=== PATIENT | female | born 1960 | race American Indian/Alaskan Native ===

== ENCOUNTER 2017-08-09 06:04 | Observation (INO) | payer OTHER ==
[2017-08-09 06:13] VITALS: BMI 31.1
--- NOTE | 2017-08-09 07:10 | ED PDOC ---
Lower Extremity Pain/Injury Time Seen by Provider: 08/09/17 07:00 Chief Complaint (Nursing): Lower Extremity Problem/Injury History Per: Patient (Right ankle pain. No recent trauma. Worse on ambualtion) Past Medical History Vital Signs: Last Vital Signs Temp 98.3 F 08/09/17 06:16 Pulse 82 08/09/17 06:26 Resp 16 08/09/17 06:16 BP 178/106 H 08/09/17 06:16 Pulse Ox 99 08/09/17 06:16 - Medical History PMH: Anemia, HTN, Hypothyroidism - Family History Family History: States: Unknown Family Hx - Immunization History Hx Tetanus Toxoid Vaccination: No Hx Influenza Vaccination: No Hx Pneumococcal Vaccination: No - Home Medications Home Medications: Ambulatory Orders Medication Instructions Recorded Atenolol/Chlorthalidone 1 tab PO DAILY 11/26/12 [Atenolol/Chlorthalidone 50 mg-25 mg] Levothyroxine [Synthroid] 1 tab PO DAILY 11/26/12 Acetaminophen with Codeine 1 each PO Q6 PRN #12 tablet 07/25/17 [Tylenol with Codeine #3 Tablet] Valsartan/Hydrochlorothiazide 1 tab PO DAILY 07/25/17 [Valsartan and Hydrochlorothiazide 12.5 mg-160] - Allergies Allergies/Adverse Reactions: Allergies Allergy/AdvReac Type Severity Reaction Status Date / Time strawberry Allergy RASH Verified 07/25/17 09:52 Review of Systems Cardiovascular: Negative for: Chest Pain Respiratory: Negative for: Shortness of Breath Musculoskeletal: Positive for: Other (Ankle pain) Neurological: Negative for: Weakness, Numbness Physical Exam - Physical Exam Appears: Positive for: Non-toxic, No Acute Distress Skin: Positive for: Normal Color, Warm, DRY Cardiovascular/Chest: Positive for: Regular Rate, Rhythm Respiratory: Positive for: CNT, Normal Breath Sounds Extremity: Positive for: Other (Swellingt and tenderness right ankle medial and lateral) Neurologic/Psych: Positive for: Alert, Oriented - ECG O2 Sat by Pulse Oximetry: 99 Disposition - Clinical Impression Clinical Impression: Fracture of distal fibula - Patient ED Disposition Is Patient to be Admitted: Yes - Disposition Disposition Time: 07:11 Condition: FAIR Forms: [facility] (Slovak) - Pt Status Changed To: Hospital Disposition Of: Observation - POA Present On Arrival: None
[2017-08-09] MEDS ORDERED: Sodium Chloride 0.9% 1,000 ML IV STA (07:26)
[2017-08-09 08:03] LABS: BASO % 0.5 % (0.0-2.0); EOS # 0.2 K/uL (0.0-0.7); EOS % 3.1 % (0.0-4.0); HEMOGLOBIN 12.2 g/dL (12.0-16.0); LYMPH # 1.5 K/uL (1.0-4.3); LYMPH % 30.8 % (20.0-40.0); MEAN CORPUSCULAR HEMOGLOBIN 29.4 pg (27.0-31.0); MEAN CORPUSCULAR HGB CONC 33.1 g/dL (33.0-37.0); MEAN PLATELET VOLUME 7.8 fl (7.2-11.7); MONO # 0.5 K/uL (0.0-0.8); MONO % 11.3 % (0.0-10.0); NEUT # 2.6 K/uL (1.8-7.0); NEUT % 54.3 % (50.0-75.0); NRBC % 0.1 % (0.0-0.0); RBC 4.14 Mil/uL (3.80-5.20); RED CELL DISTRIBUTION WIDTH 13.4 % (11.5-14.5); WHITE BLOOD COUNT 4.8 K/uL (4.8-10.8)
[2017-08-09 08:21] LABS: ALB/GLOB RATIO 0.9 (1.0-2.1); ALBUMIN 4.1 g/dL (3.5-5.0); ALT/SGPT 24 U/L (9-52); AST/SGOT 41 U/L (14-36); BLOOD UREA NITROGEN 12 mg/dl (7-17); CALCIUM 9.1 mg/dL (8.4-10.2); GFR AFRICAN-AMERICAN > 60; GFR NON-AFRICAN AMERICAN > 60
[2017-08-09 08:31] LABS: INR 1.1 (0.9-1.2); PROTHROMBIN TIME 12.7 Seconds (9.8-13.1)
--- NOTE | 2017-08-09 08:38 | CARD ---
APPROVED REPORT EKG Measurement Heart [id number] MA [id number] <Conclusion> Normal sinus rhythm Nonspecific T wave abnormality Abnormal ECG
--- NOTE | 2017-08-09 09:00 | CP.PCM.CON ---
History of Present Illness - History of Present Illness History of Present Illness: 57 yo female with pmhx of HTN, hypothyroidism and anemia presents to ED for persistent right lower leg pain. Pt has right distal fibular fx s/p slipped on puddle of water and twisted her right ankle on 07/25/17. Pt was advised to f/u with orthopedist surgeon. Today, medicine was consulted for preop medical evaluation prior to surgery. Patient denies any chest pain, dyspnea, headache, dizziness, nausea, vomiting or abdominal pain. Denies any hx CAD or asthma. Denies smoking cigarettes or using recreational drugs. Denies hx aspirin or plavix use. Last use of ibuprofen was 2 days ago. Pt was seen by her PMD Dr. Fortune about a week ago, had an EKG, UA, cbc, cmp, thyroid panel and lipid panel ( reports received and reviewed today). PMD: Dr. Fortune pmhx: HTN, Hypothyroidism, hx anemia, congenital right eye deformity medications: Diovan HCTZ (160 mg/12.5 mg), levothyroxine 75 mcg pshx: right ovarian cystectomy in allergies: NKDA Family hx: non-contributory ROS: all 12 systems reviewed and are negative except as mentioned in HPI Review of Systems - Constitutional Constitutional: absent: Chills, Fever - Cardiovascular Cardiovascular: absent: Chest Pain, Chest Pain at Rest, Chest Pain with Activity , Dyspnea - Respiratory Respiratory: absent: Cough, Dyspnea - Gastrointestinal Gastrointestinal: absent: Abdominal Pain, Nausea, Vomiting - Genitourinary Genitourinary: absent: Dysuria, Urinary Frequency - Integumentary Integumentary: absent: Unusual Bruising - Neurological Neurological: absent: Dizziness, Headaches - Hematologic/Lymphatic Hematologic: absent: Easy Bleeding, Easy Bruising Past Patient History - Infectious Disease Hx of Infectious Diseases: None - Past Medical History & Family History Past Medical History?: Yes - Past Social History Smoking Status: Current Some Days Smoker - CARDIAC Hx Hypertension: Yes - ENDOCRINE/METABOLIC Hx Hypothyroidism: Yes - HEMATOLOGICAL/ONCOLOGICAL Hx Anemia: Yes - PSYCHIATRIC Hx Emotional Abuse: No Hx Physical Abuse: No Hx Substance Use: No - SURGICAL HISTORY Hx Surgeries: No - ANESTHESIA Hx Anesthesia: No Meds Allergies/Adverse Reactions: Allergies Allergy/AdvReac Type Severity Reaction Status Date / Time strawberry Allergy RASH Verified 07/25/17 09:52 - Medications Medications: Current Medications Sodium Chloride (Sodium Chloride 0.9%) 1,000 mls @ 100 mls/hr IV .Q10H STA Stop: 08/09/17 17:25 Last Admin: 08/09/17 08:01 Dose: 100 mls/hr Physical Exam - Constitutional Appears: Well, No Acute Distress - Head Exam Head Exam: ATRAUMATIC, NORMOCEPHALIC - Eye Exam Additional comments: Congenital right eye defects (right eye blindness) - ENT Exam ENT Exam: Mucous Membranes Moist, Normal Oropharynx - Neck Exam Neck exam: Positive for: Normal Inspection. Negative for: Thyromegaly - Respiratory Exam Respiratory Exam: Clear to Auscultation Bilateral, NORMAL BREATHING PATTERN. absent: Rhonchi, Wheezes - Cardiovascular Exam Cardiovascular Exam: REGULAR RHYTHM, RRR, +S1, +S2 - GI/Abdominal Exam GI & Abdominal Exam: Normal Bowel Sounds, Soft. absent: Tenderness - Extremities Exam Extremities exam: Positive for: pedal pulses present. Negative for: calf tenderness Additional comments: Mild edema of right lower leg. Has orthoshoe on right lower leg. Neurovascular intact - Back Exam Back exam: NORMAL INSPECTION - Neurological Exam Neurological exam: Alert, Oriented x3 - Psychiatric Exam Psychiatric exam: Normal Affect, Normal Mood Results - Vital Signs Recent Vital Signs: Last Vital Signs Temp 98.3 F 08/09/17 06:16 Pulse 82 08/09/17 06:26 Resp 16 08/09/17 06:16 BP 178/106 H 08/09/17 06:16 Pulse Ox 99 08/09/17 07:11 - Labs Result Diagrams: 08/09/17 07:50 08/09/17 07:50 Labs: Laboratory Results - last 24 hr 08/09/17 08/09/17 08/09/17 07:50 07:50 07:50 WBC 4.8 RBC 4.14 Hgb 12.2 Hct 36.8 MCV 89.0 MCH 29.4 MCHC 33.1 RDW 13.4 Plt Count 295 MPV 7.8 Neut % (Auto) 54.3 Lymph % (Auto) 30.8 Grundy % (Auto) 11.3 H Eos % (Auto) 3.1 Baso % (Auto) 0.5 Neut # (Auto) 2.6 Lymph # (Auto) 1.5 Grundy # (Auto) 0.5 Eos # (Auto) 0.2 Baso # (Auto) 0.0 PT 12.7 INR 1.1 Sodium 144 Potassium 3.7 Chloride 105 Carbon Dioxide 30 Anion Gap 13 BUN 12 Creatinine 0.7 Est GFR ( Amer) > 60 Est GFR (Non-Af Amer) > 60 Random Glucose 110 H Calcium 9.1 Total Bilirubin 0.7 AST 41 H ALT 24 Alkaline Phosphatase 129 H Total Protein 8.5 H Albumin 4.1 Globulin 4.4 H Albumin/Globulin Ratio 0.9 L Assessment & Plan - Assessment and Plan (Free Text) Assessment: Assessment: 57 year old female with pmhx of HTN, hypothyroidism and anemia consulted for preop evaluation for right ankle surgery today. Plan: 1. Right distal fibular fracture -Pain management -Manage as per orthopedist 2. Hypertension -Continue with home medication, Diovan HCTZ 160mg/12.5 mg po qd 3. Hypothyroidism -TSH 1.78 on 07/16/17 -continue with levothyroxine 75 mcg
--- NOTE | 2017-08-09 09:25 | RAD ---
PROCEDURE: Right Ankle Radiographs. HISTORY: trauma COMPARISON: None FINDINGS: BONES: Oblique nondisplaced fracture distal fibula. No tibial fracture appreciated. JOINTS: Normal. No osteoarthritis. Ankle mortise maintained. Talar dome intact SOFT TISSUES: Lateral soft tissue swelling OTHER FINDINGS: None. IMPRESSION: Nondisplaced distal fibular fracture.
--- NOTE | 2017-08-09 09:26 | RAD ---
HISTORY: preop COMPARISON: No prior. TECHNIQUE: Chest PA and lateral FINDINGS: LUNGS: No active pulmonary disease. PLEURA: No significant pleural effusion identified. No pneumothorax apparent. CARDIOVASCULAR: Normal. OSSEOUS STRUCTURES: No significant abnormalities. VISUALIZED UPPER ABDOMEN: Normal. OTHER FINDINGS: None. IMPRESSION: No active disease.
[2017-08-09] MEDS ORDERED: Ropivacaine 0.5% 30ML IV ONE (10:13)
[2017-08-09] MEDS ORDERED: Rocuronium 10 mg/ml (5 ml) ONE ×2 (10:18→11:54)
[2017-08-09] MEDS ORDERED: Propofol 10 mg/ml Inj (20 ML) ONE (10:18)
[2017-08-09] MEDS ORDERED: Succinylcholine 200 mg/10 ml Inj IV ONE (10:22)
[2017-08-09] MEDS ORDERED: Lactated Ringer's 1,000 ML IV ONE ×2 (11:00)
[2017-08-09] MEDS ORDERED: Midazolam 2 MG/2 ML VIAL ONE (11:02)
[2017-08-09] MEDS ORDERED: ceFAZolin IV 1 gm in Dextrose 2 GM/100 ML BAG IVPB ONE (11:21)
[2017-08-09] MEDS ORDERED: Phenylephrine 10 mg/ml Inj ONE (11:28)
[2017-08-09] MEDS ORDERED: Lactated Ringer's 500 ML IV ONE (12:50)
[2017-08-09] MEDS ORDERED: HYDROmorphone 0.5 mg/0.5 ml ISec IVP PRN (13:12)
[2017-08-09] MEDS ORDERED: Lactated Ringer's 1,000 ML IV SCH (13:15)
--- NOTE | 2017-08-09 13:16 | PCM.ANESB3 ---
Femoral Nerve Block - Femoral Nerve Block Date of Procedure: 08/09/17 Anesthesiologist: Dmitri Pre-Procedure Diagnosis: Right ankle fracture Post-Procedure Diagnosis: Same Procedure Performed: Femoral Nerve Block Right - Procedure Femoral Nerve Block: The procedure was explained to the patient that it is for the post-operative pain management. Consent was obtained after a thorough discussion with the patient regarding the benefits and possible complications of local anesthetic block of the femoral nerve at the inguinal crease area. The patient was brought to the operating room and standard monitors were applied. Time-out was held with the circulating nurse to confirm the correct surgery and the appropriate block. Under general anesthesia, patient was placed in supine position with fully extended lower extremities and the ___right groin exposed. The femoral artery was then carefully palpated. The ultrasound transducer was then applied to this area in the transverse plane and the femoral nerve was visualized lateral to the femoral artery and underneath the fascia iliaca. After thorough identification, the inguinal crease area was prepped with Chloraprep. At this point, a #22 gauge Stimuplex 2-inch needle was inserted immediately lateral to the femoral artery pulse at the inguinal crease and advanced perpendicularly. The needle was inserted to the ultrasound transducer in-plane towards the femoral nerve in a [id number] direction. Needle advancement was performed carefully under direct ultrasound visualization. Nerve stimulator was used and twitch of the quadriceps muscle was obtained at current of __0.4___ MA. After negative aspiration, __2___cc of __0.25___% ____ropivicaine was injected and this was followed with cc of __0.25 % ____ ropivicaine . Under ultrasound guidance the local anesthetics were observed spreading below fascia iliaca and around the femoral nerve. The needle was removed intact and sterile dressing was applied. The patient had stable vital signs, was conscious and in no apparent distress. The patient tolerated the femoral nerve block well with stable vital signs and was prepared for subsequent surgery.
--- NOTE | 2017-08-09 13:22 | PCM.ANESB2 ---
Popliteal Nerve Block - Popliteal Nerve Block Date of Procedure: 08/09/17 Anesthesiologist: Dmitri Pre-Procedure Diagnosis: Right ankle fracture Post-Procedure Diagnosis: Same Procedure Performed: Popliteal Nerve Block Right - Procedure Popliteal Nerve Block: This procedure was explained to the patient that it is for post-operative pain management. Consent was obtained after a thorough discussion with the patient regarding the benefits and possible complications of local anesthetic block of the sciatic nerve at the popliteal level. The patient was brought to the operating room and standard monitors are applied. Time-out was held with the circulating nurse to confirm the correct surgery and the appropriate block. Under general anesthesia, patient's operative leg was gently raised and supported and the groove in between the biceps femoris and vastus lateralis muscles was carefully palpated. The skin approximately 8cm above the popliteal crease was then marked. The ultrasound transducer was then applied to the posterior thigh approximately 8cm above the popliteal crease in the transverse plane and the sciatic nerve before its division was visualized lateral to the popliteal artery and in between the bicep femoris and semimembranosus/ semitendinosus muscles. After identification, the lateral portion of the thigh was prepped with Chloraprep At this point, a # 21 gauge Stimuplex insulated 4 inch needle was inserted into pre-marked area and advanced in a perpendicular direction. The needle was inserted above the ultrasound transducer in-plane towards the sciatic nerve in a [id number] direction. Needle advancement was performed carefully under direct ultrasound visualization. Nerve stimulator was used and dorsiflexion of the ___right__ foot was elicited at a current of ___0.4__ MA. After repeated negative aspiration, __2___cc of __0.5___ % ___bupivicaine was injected and this was flowed with __18____ cc of __0.5____% __ropivicaine ___. Under ultrasound guidance the local anesthetics were observed surrounding sciatic nerve . The needle was removed intact and sterile dressing was applied. The patient tolerated the popliteal nerve block well with stable vital signs and was subsequently prepared for the surgery.
--- NOTE | 2017-08-09 14:17 | PCM.SURG1 ---
Surgeon's Initial Post Op Note - Surgeon's Notes Surgeon: Dr. Ayala [employer] Technician: Dr. Emy Correa PGY-1 Type of Anesthesia: General Endo, Block Regional Anesthesia Administered By: Dr. Rizvi Pre-Operative Diagnosis: right ankle bimalleolar fracture Operative Findings: see operative report Post-Operative Diagnosis: same Operation Performed: open reduction and internal fixation of right distal fibula fracture, repair of ankle syndesmosis Specimen/Specimens Removed: none Estimated Blood Loss: EBL {In ML}: 20 Blood Products Given: N/A Drains Used: No Drains Post-Op Condition: Good Date of Surgery/Procedure: 08/09/17 Time of Surgery/Procedure: 14:16
--- NOTE | 2017-08-09 15:25 | RAD ---
PROCEDURE: Fluoroscopy up to 1 hr. HISTORY: ANKLE FX COMPARISON: None TECHNIQUE: Standard protocol for this study/examination. FINDINGS: Total fluoroscopic time (continuous mode) utilized during the procedure (seconds) 50.5. Total exam DLP: (mGy) 1.16. IMPRESSION: Submitted images from the current procedure: 7.0
[2017-08-09] MEDS ORDERED: Oxycodone/Acetaminophen 5/325 mg Tab PO PRN (16:47)
--- NOTE | 2017-08-09 16:57 | RAD ---
PROCEDURE: Right Ankle Radiographs. HISTORY: s/p surgery COMPARISON: August 09, 2017. Preoperative study FINDINGS: BONES: Anatomic alignment of major fracture fragments distal right fibula. No evidence of orthopedic hardware failure. JOINTS: Normal. No osteoarthritis. Ankle mortise maintained. Talar dome intact SOFT TISSUES: Normal. OTHER FINDINGS: None. IMPRESSION: Satisfactory postoperative status.
[2017-08-10] MEDS: Levothyroxine 75 MCG TAB PO SCH (05:54)
[2017-08-10] MEDS ORDERED: Patient's Own Med (Valsartan/Hydrochlorothiazide [Valsartan-Hctz 160-12.5 Mg Tab] 1 TAB) PO SCH (09:00)
[2017-08-10] MEDS: Enoxaparin 40 mg Syringe SC SCH (09:35)
--- NOTE | 2017-08-10 10:33 | RAD ---
PROCEDURE: Right Knee Radiographs. HISTORY: status post fall COMPARISON: None. FINDINGS: BONES: Osteopenia limiting optimal evaluation. No fracture appreciated. Diffuse spurring present JOINTS: Osteoarthrosis JOINT EFFUSION: Present OTHER FINDINGS: None. IMPRESSION: No fracture appreciated. Osteopenia. Osteoarthrosis Joint effusion
--- NOTE | 2017-08-10 11:53 | RAD ---
PROCEDURE: Right Ankle Radiographs. HISTORY: s/p injury s/p surgery COMPARISON: Right ankle radiographs dated 08/09/2017 FINDINGS: Distal right lower extremity cast again limits evaluation of fine bony detail. Distal fibular fixation plate and syndesmotic screw are redemonstrated without significant change in appetite structures remain in anatomic alignment post fixation. Postsurgical changes are seen within soft tissues with skin melly overlying the lateral malleolus. IMPRESSION: Status post right ankle ORIF.
--- NOTE | 2017-08-10 14:41 | CP.PCM.PN ---
Subjective - Date & Time of Evaluation Date of Evaluation: 08/10/17 Time of Evaluation: 11:30 - Subjective Subjective: no fever Pain controlled with analgesics Pt had an assisted fall last night, hit her right knee- xrays done and pt has no fracture denies CP no SOB no abd pain no headache Objective - Vital Signs/Intake and Output Vital Signs (last 24 hours): Temp Pulse Resp BP Pulse Ox 98.3 F 65 20 153/94 H 96 08/10/17 08:09 08/10/17 08:09 08/10/17 08:09 08/10/17 08:09 08/10/17 08:09 - Medications Medications: Current Medications Docusate Sodium (Colace) 100 mg PO DAILY [facility] Last Admin: 08/10/17 09:35 Dose: Not Given Enoxaparin Sodium (Lovenox) 40 mg SC DAILY [facility] PRN Reason: Protocol Last Admin: 08/10/17 09:35 Dose: 40 mg Hydralazine HCl (Apresoline) 5 mg IV Q15MIN PRN PRN Reason: Other Hydrochlorothiazide (Microzide) 12.5 mg PO DAILY [facility] Last Admin: 08/10/17 09:36 Dose: 12.5 mg Lactated Ringer's (Lactated Ringer's) 1,000 mls @ 100 mls/hr IV .Q10H [facility] Last Admin: 08/09/17 21:07 Dose: 100 mls/hr Levothyroxine Sodium (Synthroid) 75 mcg PO DAILY@0630 [facility] Last Admin: 08/10/17 05:54 Dose: 75 mcg Oxycodone/Acetaminophen (Percocet 5/325 Mg Tab) 1 tab PO Q6 PRN PRN Reason: Pain, moderate (4-7) Stop: 08/12/17 16:48 Valsartan (Diovan) 160 mg PO DAILY [facility] Last Admin: 08/10/17 09:35 Dose: 160 mg - Labs Labs: 08/09/17 07:50 08/09/17 07:50 PT 12.7 Seconds (9.8-13.1) 08/09/17 07:50 INR 1.1 (0.9-1.2) 08/09/17 07:50 - Constitutional Appears: No Acute Distress - Head Exam Head Exam: ATRAUMATIC, NORMAL INSPECTION, NORMOCEPHALIC - Eye Exam Additional comments: right eye blind with opacified pupils Left - normal accommodation, RTL - ENT Exam ENT Exam: Mucous Membranes Moist, Normal External Ear Exam - Neck Exam Neck Exam: Full ROM. absent: Meningismus - Respiratory Exam Respiratory Exam: NORMAL BREATHING PATTERN. absent: Respiratory Distress - Cardiovascular Exam Cardiovascular Exam: REGULAR RHYTHM, +S1, +S2 - GI/Abdominal Exam GI & Abdominal Exam: Soft, Normal Bowel Sounds. absent: Tenderness - Extremities Exam Additional comments: Right LE with dressing and wrapped in AUDREY bandage able to move extremities ,pulses full - Back Exam Back Exam: Full ROM. absent: CVA tenderness (L), CVA tenderness (R) - Neurological Exam Neurological Exam: Alert, Awake, CN II-XII Intact, Oriented x3 Neuro motor strength exam: Left Upper Extremity: 5, Right Upper Extremity: 5, Left Lower Extremity: 5, Right Lower Extremity: 5 - Psychiatric Exam Psychiatric exam: Normal Affect, Normal Mood - Skin Skin Exam: Dry, Normal Color, Warm Assessment and Plan - Assessment and Plan (Free Text) Assessment: 57 year old female with pmhx of HTN, hypothyroidism and anemia , slipped and fell at home and sustained a Right Ankle fracture. Had ORIF of the ankle on 08/[address]ala. Post op , pt was seen by PT and deemed unsafe for discharge home. Crutch training and Rolling walker training done by PT however pt unable to safely ambulate with these. She lives in a second floor walk up apartment and so was kept for further training. Pt has no [employer] benefits and unable to afford copayment. 1. Right distal fibular fracture s/p ORIF - ORIF done by Dr Ayala - plan for d/c home post today however pt unable to safely ambulate to be d/c home - will keep pt in the hospital for further training - had fall last night while being assisted to the commode and hit her -Pain management - pt had a fall while being assisted to the commode last night - she landed on her right knee. Xray of the right knee and ankle done showed no fracture. 2. Hypertension -Continue with home medication, Diovan HCTZ 160mg/12.5 mg po qd 3. Hypothyroidism -TSH 1.78 on 07/16/17 -continue with levothyroxine 75 mcg 3. DVT proph - Lovenox
--- NOTE | 2017-08-10 20:54 | CON ---
DATE: 08/10/2017 EMERGENCY ROOM CONSULTATION NOTE HISTORY OF PRESENT ILLNESS: The patient is a 57-year-old female who had a twisting injury over a week ago. Patient presented to the emergency room where the x-rays were taken showing a bimalleolar equivalent fracture. Patient denies pain in any of the extremity or joint. Denies any paraesthesias or motor weakness. Currently, not in any acute distress. PAST MEDICAL HISTORY: Hypertension. PHYSICAL EXAMINATION: Examination of the patient's right ankle, there is swelling on the lateral side of the ankle. It is also tender to palpation in the medial deltoid over the deltoid ligament. Limited range of motion secondary to pain. Neurovascularly intact distally. IMAGING: X-ray of the patient's right ankle showing a bimalleolar equivalent fracture with increased clear space on stress view. ASSESSMENT AND PLAN: A 57-year-old female with unstable and displaced right ankle fracture. TREATMENT: Due to the unstable nature of the fracture, the patient will be taken to the operating room for open reduction and internal fixation, possible syndesmosis repair. I reviewed the risks and benefits, and we will proceed today with surgery. Aaron Ayala MD
--- NOTE | 2017-08-10 21:12 | OP ---
PROCEDURE DATE: 08/09/2017 ATTENDING PHYSICIAN: Aaron Ayala M.D. PLUG CUTTER: Bijan Giordano M.D. PREOPERATIVE DIAGNOSES: 1. Right ankle bimalleolar equivalent fracture. 2. Syndesmotic rupture. 3. Soft tissue swelling. POSTOPERATIVE DIAGNOSES: 1. Right ankle bimalleolar equivalent fracture. 2. Syndesmotic rupture. 3. Soft tissue swelling. PROCEDURES: 1. Right ankle open reduction and internal fixation of lateral malleolus fracture. 2. Syndesmotic repair using TightRope. 3. Open debridement of the soft tissue on the bone. 4. Placement of the posterior splint. 5. Fluoroscopic use, greater than 1 hour. TYPE OF ANESTHESIA: General and popliteal nerve block. ESTIMATED BLOOD LOSS: 20 mL. COMPLICATIONS: None. TECHNIQUE: Patient was seen in the emergency room with a displaced and unstable right ankle fracture with syndesmosis rupture and was taken to the operating room. She placed on the operating room table, given appropriate prophylactic antibiotics. A padded tourniquet was applied to patient's right thigh, and right ankle was draped and prepped in a standard sterile manner. Time-out was completed confirming patient's right ankle to be the correct operative site and fluoroscopic images were taken and stress view showing the opening of the medial clear space, confirming the unstable nature of the fracture and also widening of the syndesmosis. First, we proceeded with an incision of the lateral malleoli. A 6 cm incision was made extending to the distal tip of the lateral malleoli. Skin dissection was taken down and the periosteum was elevated and the fracture site was exposed. There was extensive soft tissue trauma and bone debris. An extensive soft tissue and bone debridement was performed using curette and irrigation and then using the reduction clamps, the fracture was brought out to length and anatomically reduced. Initially, a 2.7 lag screw was used to hold and compress the fracture. Afterwards, a Synthes tubular locking plate was applied. Three cortical screws were placed proximally and four locking screws were placed distally. Next, a stress test was performed showing a widening of the syndesmosis. Then for syndesmosis, we are proceeded with a TightRope device. A drill hole was made from the fibula laterally into the medial mal and a TightRope device along with the button was placed on the medial aspect of the ankle and the syndesmosis was synched with reduction clamps. Final radiographs were taken showing adequate neuroanatomic reduction, and the wound was copiously irrigated and closed in a standard fashion. Patient was placed in a posterior splint and was instructed to remain nonweightbearing. No complication of surgery. Dr. Bijan Giordano is a board certified orthopedic surgeon who was present for the case as his participation was crucial in patient positioning, retraction of critical neurovascular structures, fracture reduction, and successful completion of the surgery. Aaron Ayala MD
--- NOTE | 2017-08-10 22:01 | CP.PCM.PN ---
Subjective - Date & Time of Evaluation Date of Evaluation: 08/10/17 Time of Evaluation: 08:45 - Subjective Subjective: 57 yo F S/P ORIF right ankle disal fibula fx and repair of syndesmosis POD#1 Pt seen and examined with Dr. Ayala at bedside, pt comfortable in bed Pt c/o right ankle and right knee pain Pt states had fall last night as she was trying to get to comode, hitting her right knee Pt denies any SOB, chest pain, N/V/D, parestheis to RLE Objective - Vital Signs/Intake and Output Vital Signs (last 24 hours): Temp Pulse Resp BP Pulse Ox 98.4 F 70 18 136/81 99 08/10/17 16:33 08/10/17 16:33 08/10/17 16:33 08/10/17 16:33 08/10/17 16:33 - Medications Medications: Current Medications Docusate Sodium (Colace) 100 mg PO DAILY [facility] Last Admin: 08/10/17 09:35 Dose: Not Given Enoxaparin Sodium (Lovenox) 40 mg SC DAILY [facility] PRN Reason: Protocol Last Admin: 08/10/17 09:35 Dose: 40 mg Hydralazine HCl (Apresoline) 5 mg IV Q15MIN PRN PRN Reason: Other Hydrochlorothiazide (Microzide) 12.5 mg PO DAILY [facility] Last Admin: 08/10/17 09:36 Dose: 12.5 mg Lactated Ringer's (Lactated Ringer's) 1,000 mls @ 100 mls/hr IV .Q10H [facility] Last Admin: 08/09/17 21:07 Dose: 100 mls/hr Levothyroxine Sodium (Synthroid) 75 mcg PO DAILY@0630 [facility] Last Admin: 08/10/17 05:54 Dose: 75 mcg Oxycodone/Acetaminophen (Percocet 5/325 Mg Tab) 1 tab PO Q6 PRN PRN Reason: Pain, moderate (4-7) Stop: 08/12/17 16:48 Valsartan (Diovan) 160 mg PO DAILY [facility] Last Admin: 08/10/17 09:35 Dose: 160 mg - Labs Labs: 08/09/17 07:50 08/09/17 07:50 PT 12.7 Seconds (9.8-13.1) 08/09/17 07:50 INR 1.1 (0.9-1.2) 08/09/17 07:50 - Constitutional Appears: Well, No Acute Distress - Respiratory Exam Respiratory Exam: Clear to Ausculation Bilateral, NORMAL BREATHING PATTERN - Cardiovascular Exam Cardiovascular Exam: REGULAR RHYTHM, RRR - Extremities Exam Additional comments: RLE: +ttp medial and lateral joint line of knee, +mild swelling ROM at knee limited due to pain and right ankle injury posterior splint Right ankle in place, dressing C/D/I calves soft and nontender b/l N/V intact distally, ROM digits right foot limited (pt had regional block), sensation intact Assessment and Plan - Assessment and Plan (Free Text) Assessment: 57 yo F s/p ORIF right ankle distal fibula fx and repair of syndesmosis POD#1 Plan: Xrays right ankle and right knee s/p fall post sx reviewed- knee xrays neg for fx or dislocation, rt ankle xrays reveal hardware in place, no new fx Pain Control DVT ppx PT/OT - NWB RLE Incentive Spirometer D/C planning pending PT clearance s/p training with crutches/walker as pt lives on 2nd floor and is unable to ambulate
[2017-08-11] MEDS: Levothyroxine 75 MCG TAB PO SCH (06:26)
[2017-08-11 07:52] VITALS: RESP 20
[2017-08-11] MEDS: Enoxaparin 40 mg Syringe SC SCH (09:08)
--- NOTE | 2017-08-11 09:30 | CP.PCM.PN ---
Subjective - Date & Time of Evaluation Date of Evaluation: 08/11/17 Time of Evaluation: 08:40 - Subjective Subjective: Progress note for Dr. Hernandez Patient seen and examined at bedside this morning. No acute overnight events. Pt reports some pressure on right ankle area when she rest her leg in certain position. Denies any numbness, tingling or pain. States her pain is well controlled with acetaminophen. Denies any chest pain, dypsnea, abdominal pain, nausea, vomiting, headache, dizziness, fever or chills. Objective - Vital Signs/Intake and Output Vital Signs (last 24 hours): Temp Pulse Resp BP Pulse Ox 97.5 F L 95 H 20 126/82 100 08/11/17 07:51 08/11/17 07:51 08/11/17 07:51 08/11/17 07:51 08/11/17 07:51 - Medications Medications: Current Medications Docusate Sodium (Colace) 100 mg PO DAILY [facility] Last Admin: 08/11/17 09:09 Dose: 100 mg Enoxaparin Sodium (Lovenox) 40 mg SC DAILY [facility] PRN Reason: Protocol Last Admin: 08/11/17 09:08 Dose: 40 mg Hydralazine HCl (Apresoline) 5 mg IV Q15MIN PRN PRN Reason: Other Hydrochlorothiazide (Microzide) 12.5 mg PO DAILY [facility] Last Admin: 08/11/17 09:08 Dose: 12.5 mg Lactated Ringer's (Lactated Ringer's) 1,000 mls @ 100 mls/hr IV .Q10H [facility] Last Admin: 08/09/17 21:07 Dose: 100 mls/hr Levothyroxine Sodium (Synthroid) 75 mcg PO DAILY@0630 [facility] Last Admin: 08/11/17 06:26 Dose: 75 mcg Oxycodone/Acetaminophen (Percocet 5/325 Mg Tab) 1 tab PO Q6 PRN PRN Reason: Pain, moderate (4-7) Stop: 08/12/17 16:48 Valsartan (Diovan) 160 mg PO DAILY [facility] Last Admin: 08/11/17 09:08 Dose: 160 mg - Labs Labs: 08/09/17 07:50 08/09/17 07:50 PT 12.7 Seconds (9.8-13.1) 08/09/17 07:50 INR 1.1 (0.9-1.2) 08/09/17 07:50 - Constitutional Appears: No Acute Distress - Head Exam Head Exam: ATRAUMATIC, NORMOCEPHALIC - Eye Exam Additional comments: Right eye blind Left eye: normal appearance - ENT Exam ENT Exam: Mucous Membranes Moist, Normal Oropharynx - Neck Exam Neck Exam: Full ROM, Normal Inspection - Respiratory Exam Respiratory Exam: Clear to Ausculation Bilateral, NORMAL BREATHING PATTERN. absent: Rales, Rhonchi, Wheezes - Cardiovascular Exam Cardiovascular Exam: REGULAR RHYTHM, +S1, +S2 - GI/Abdominal Exam GI & Abdominal Exam: Soft, Normal Bowel Sounds. absent: Tenderness - Back Exam Additional comments: Dressing with dayton bandage intact in RLE. neurovascular intact and able to move the toes. - Neurological Exam Neurological Exam: Alert, Awake, Oriented x3 - Psychiatric Exam Psychiatric exam: Normal Affect, Normal Mood - Skin Skin Exam: Dry, Normal Color, Warm Assessment and Plan - Assessment and Plan (Free Text) Assessment: 57 year old female with pmhx of HTN, hypothyroidism and anemia , slipped and fell at home and sustained a Right Ankle fracture. Had ORIF of the ankle on 08/[address]ala. Post op , pt was seen by PT and deemed unsafe for discharge home. Crutch training and Rolling walker training done by PT however pt unable to safely ambulate with these. She lives in a second floor walk up apartment and so was kept for further training. Pt has no [employer] benefits and unable to afford copayment. 1. Right distal fibular fracture s/p ORIF - ORIF done by Dr Ayala - plan for d/c home post surgery however pt unable to safely ambulate to be d/ c home - will keep pt in the hospital for further training - patient had a fall while being assisted to the commode last night - she landed on her right knee. Xray of the right knee and ankle done showed no fracture. - Pain management - Follow up on PT recommendation for safe discharge. 2. Hypertension -Stable -Continue with home medication, Diovan HCTZ 160mg/12.5 mg po qd 3. Hypothyroidism -TSH 1.78 on 07/16/17 -continue with levothyroxine 75 mcg 4. DVT proph - Lovenox
--- NOTE | 2017-08-11 12:08 | CP.PCM.DIS ---
Provider - Provider Date of Admission: 08/09/17 07:41 Attending physician: Aaron Villanueva MD Time Spent in preparation of Discharge (in minutes): 30 Diagnosis - Discharge Diagnosis (1) Fracture of distal fibula Status: Acute (2) S/P ORIF (open reduction internal fixation) fracture Status: Acute (3) Chronic hypertension Status: Chronic (4) Hypothyroidism Status: Chronic Hospital Course - Lab Results Lab Results: Most Recent Lab Values WBC 4.8 K/uL (4.8-10.8) 08/09/17 07:50 RBC 4.14 Mil/uL (3.80-5.20) 08/09/17 07:50 Hgb 12.2 g/dL (12.0-16.0) 08/09/17 07:50 Hct 36.8 % (34.0-47.0) 08/09/17 07:50 MCV 89.0 fl (81.0-99.0) 08/09/17 07:50 MCH 29.4 pg (27.0-31.0) 08/09/17 07:50 MCHC 33.1 g/dL (33.0-37.0) 08/09/17 07:50 RDW 13.4 % (11.5-14.5) 08/09/17 07:50 Plt Count 295 K/uL (130-400) 08/09/17 07:50 MPV 7.8 fl (7.2-11.7) 08/09/17 07:50 Neut % (Auto) 54.3 % (50.0-75.0) 08/09/17 07:50 Lymph % (Auto) 30.8 % (20.0-40.0) 08/09/17 07:50 [place] % (Auto) 11.3 % (0.0-10.0) H 08/09/17 07:50 Eos % (Auto) 3.1 % (0.0-4.0) 08/09/17 07:50 Baso % (Auto) 0.5 % (0.0-2.0) 08/09/17 07:50 Neut # (Auto) 2.6 K/uL (1.8-7.0) 08/09/17 07:50 Lymph # (Auto) 1.5 K/uL (1.0-4.3) 08/09/17 07:50 [place] # (Auto) 0.5 K/uL (0.0-0.8) 08/09/17 07:50 Eos # (Auto) 0.2 K/uL (0.0-0.7) 08/09/17 07:50 Baso # (Auto) 0.0 K/uL (0.0-0.2) 08/09/17 07:50 PT 12.7 Seconds (9.8-13.1) 08/09/17 07:50 INR 1.1 (0.9-1.2) 08/09/17 07:50 Sodium 144 mmol/l (132-148) 08/09/17 07:50 Potassium 3.7 MMOL/L (3.6-5.0) 08/09/17 07:50 Chloride 105 mmol/L (98-107) 08/09/17 07:50 Carbon Dioxide 30 mmol/L (22-30) 08/09/17 07:50 Anion Gap 13 (10-20) 08/09/17 07:50 BUN 12 mg/dl (7-17) 08/09/17 07:50 Creatinine 0.7 mg/dl (0.7-1.2) 08/09/17 07:50 Est GFR ( Amer) > 60 08/09/17 07:50 Est GFR (Non-Af Amer) > 60 08/09/17 07:50 Random Glucose 110 mg/dL (65-105) H 08/09/17 07:50 Calcium 9.1 mg/dL (8.4-10.2) 08/09/17 07:50 Total Bilirubin 0.7 mg/dl (0.2-1.3) 08/09/17 07:50 AST 41 U/L (14-36) H 08/09/17 07:50 ALT 24 U/L (9-52) 08/09/17 07:50 Alkaline Phosphatase 129 U/L (38-126) H 08/09/17 07:50 Total Protein 8.5 G/DL (6.3-8.2) H 08/09/17 07:50 Albumin 4.1 g/dL (3.5-5.0) 08/09/17 07:50 Globulin 4.4 gm/dL (2.2-3.9) H 08/09/17 07:50 Albumin/Globulin Ratio 0.9 (1.0-2.1) L 08/09/17 07:50 - Hospital Course Hospital Course: 57 year old female with pmhx of HTN, hypothyroidism and anemia , slipped and fell at home and sustained a Right Ankle fracture on 07/25/17. Patient was admitted to hospital on 08/09/17 and had ORIF of the right ankle done by DR Villanueva. On Post op day, pt was seen by PT and deemed unsafe for discharge home. Crutch training and Rolling walker training done by PT however pt unable to safely ambulate with these. She lives in a second floor walk up apartment and so was kept for further training. Patient had assisted fall on and hitting her right knee. X-ray of right knee showed no acute fx and ankle x-ray showed prosthetic in place and no new fx. Today, patient denies any RLE pain or paresthesia. Denies any chest pain, dyspnea, headache, dizziness , nausea, vomiting, fever or chills. Patient was seen by PT, received further training with a walker and crutches. Patient is medically stable to discharge home. Patient is advised to follow up with Dr. Villanueva in 1 week and advised to no weight bearing on RLE. Medications on discharge: Docusate [Colace] 100 mg PO BID #20 cap oxyCODONE/Acetaminophen [Percocet 5/325 mg Tab] 1 tab PO Q6 PRN #20 tab Levothyroxine Sodium (Synthroid) 75 mcg PO DAILY (no new rx) Diovan HCTZ 160/12.5 mg po daily ( no new rx) Discharge Exam - Head Exam Head Exam: ATRAUMATIC, NORMAL INSPECTION, NORMOCEPHALIC - Eye Exam Additional comments: Right eye blind with opacified pupil Left eye: normal appearance - ENT Exam ENT Exam: Mucous Membranes Moist, Normal Oropharynx - Respiratory Exam Respiratory Exam: Clear to PA & Lateral, NORMAL BREATHING PATTERN. absent: Rales, Rhonchi, Wheezes - Cardiovascular Exam Cardiovascular Exam: REGULAR RHYTHM, RRR, +S1, +S2 - GI/Abdominal Exam GI & Abdominal Exam: Normal Bowel Sounds, Soft. absent: Tenderness - Extremities Exam Additional comments: Dressing with dayton bandage intact in RLE. Neurovascular intact. Able to move the toes and toes are warm to touch. - Neurological Exam Neurological exam: Alert, Oriented x3 - Psychiatric Exam Psychiatric exam: Normal Affect, Normal Mood - Skin Skin Exam: Normal Color, Warm Discharge Plan - Discharge Medications Prescriptions: Docusate [Colace] 100 mg PO BID #20 cap oxyCODONE/Acetaminophen [Percocet 5/325 mg Tab] 1 tab PO Q6 PRN #20 tab PRN Reason: Pain, Severe (8-10) - Follow Up Plan Condition: FAIR Disposition: HOME/ ROUTINE Instructions: Ankle Fracture (DC), Open Reduction and Internal Fixation Surgery (DC), Going Up and Down Curbs or Stairs With a Walker or Crutches, Hypertension (DC), Hypertension (GEN) Additional Instructions: follow up with dr villanueva 1 week keep splint on, use crutch for ambulation No weight bearing on right lower leg until follow up with Dr. Villanueva. Referrals: Edi Fortune [Family Provider] - Aaron Villanueva MD [Staff Provider] -
[2017-08-11 16:17] VITALS: BP 138/71; PULSE 98; TEMP 99.2; O2SAT 92
== END 2017-08-11 16:48 | disposition home health service (06) ==
LOC: H.ER 06:04 → H.ERHOLD 07:41 → H.MEDSURG1 19:35
PROVIDERS: ADMIT Orthopaedic Surgery; ATTEND Orthopaedic Surgery
DX: S82.841A Displaced bimalleolar fracture of right lower leg, initial encounter for closed fracture (principal); E03.9 Hypothyroidism, unspecified; I10 Essential (primary) hypertension; D64.9 Anemia, unspecified; H54.40 Blindness, one eye, unspecified eye; F17.210 Nicotine dependence, cigarettes, uncomplicated; W01.0XXA Fall on same level from slipping, tripping and stumbling without subsequent striking against object, initial encounter; Y92.009 Unspecified place in unspecified non-institutional (private) residence as the place of occurrence of the external cause
CPT/HCPCS: 11012; 27814; 64447; 71046; 73562; 73610; 76000; 80053; 85025; 85610; 93005; 97116; 97162; 97530; 99284; C1713; C1769; G0378; G8978; G8979; J0330; J0690; J1650; J2001; J2250; J2370; J2405; J2704; J2765; J3010; J7030; J7120